=== PATIENT | female | born 1945 | race Caucasian/White ===

== ENCOUNTER → 2017-04-28 | Outpatient (CLI) | payer OTHER, MEDICAID ==
[2017-04-28 14:18] LABS: CRYPTOSPORIDIUM PARVUM ANTIGEN NEGATIVE (NEGATIVE); GIARDIA LAMBLIA ANTIGEN NEGATIVE (NEGATIVE)
== END ==
LOC: LAB 11:19
PROVIDERS: ATTEND Internal Medicine
DX: R19.7 Diarrhea, unspecified (principal)
CPT/HCPCS: 36415; 82270; 87045; 87205; 87328; 87329; 87336; 87427; 87493; 87899

== ENCOUNTER → 2017-06-18 | Outpatient (CLI) | payer OTHER, MEDICAID ==
--- NOTE | 2017-06-18 11:46 | CT ---
STUDY: CT HEAD WITHOUT CONTRAST HISTORY: Headache. Dizziness. Vision changes. COMPARISON: None. TECHNIQUE: Multiple axial images of the head were obtained from the skull base to the vertex without administration of IV contrast. Automated exposure control (AEC) was utilized to adjust the MA and/o r kV. Findings: The sulci, cisterns and ventricles are prominent consistent with mild diffuse volume loss. There are scattered foci of low attenuation in the periventricular and subcortical white matter of both hemispheres. This is a nonspecific finding which likely represents microangiopathic change in a patient of this age. There is no evidence of acute territorial infarction, hemorrhage, mass, mass effect or midline shift . There are no abnormal extra-axial fluid collections. There is no evidence of acute osseous abnorma lity or significant soft tissue swelling. IMPRESSION: 1. No evidence of acute intracranial abnormality. 2. Nonspecific white matter change and mild volume loss as described. 3. If there remains strong clinical concern for acute intracranial abnormality, then an MRI examinat ion should be considered for further evaluation. Reported By:
== END ==
LOC: RAD 10:52
PROVIDERS: ATTEND Internal Medicine
DX: R51 Headache (principal)
CPT/HCPCS: 70450

== ENCOUNTER 2017-07-01 10:05 | Emergency (ER) | payer OTHER, MEDICAID ==
[2017-07-01 10:15] VITALS: BP 143/75; BMI 22.6
--- NOTE | 2017-07-01 11:00 | DR.AMS ---
HPI - Time Seen Time seen: 11:00 - PCP Primary Care Physician: HEMANTH MEJIA - HPI Comment HPI Comment: GETTING WORSE. - Complaint Cheif Complaint Doctors Comments: VISUAL AND AUDITORY HALLUCINATIONS TIMES 3 DAYS. SHE CALL THE POLICE TO HER HOME SAYING SHE SAW SOMEONE AT THE HOME. SHE PULL HER GUN. DR. COLON DID AN OUT PATIENT CT OF THE BRAIN THAT DID NOT REPORT ACUTE FINDINGS. NO FEVER. INTERMITTENT CONFUSION. Chief Complaint:: PTS BOYFRIEND STATES " SHE HAS BEEN SEEING THINGS, AND SHE CALLED THE POLICE THIS AM B/C SHE WAS SAW SOMEONE IN HER HOUSE AND SHE PULLED OUT HER GUN ".. Self Treatment fo Chief Complaint: PTS BOYIEND STATES " IT IS WORSE TODAY ".. - Reviewed Nurses Notes Reviewed: Yes - Source History Provided: Family Member - Mode of Arrival Mode of Arrival: Ambulatory - Timing Onset of Chief Complaint: 06/28/17 Came On: Suddenly Symptoms: Worsening - Duration Duration: Constant Duration: Days - Quality Quality: Change in Behavior, Confusion - Severity Severity: Moderate - Context Recent: None History Of: None - Associated Signs and Symptoms Associated Signs and Symptoms: None PMH - PMH Past Medical History: Yes Past Medical History: Hypertension Past Surgical History: Yes Surgical History: Cholecystectomy - Family History History of Family Medical Conditions: No - Social History Does patient currently use any type of tobacco product: No Have you used tobacco products in the last 12 months: No Type of Tobacco Use: None Does any household member use tobacco: No Alcohol Use: None Do you use any recreational Drugs:: No Lives With: Family Lives Where: Home - infectious screening In the last 2 months have you had wt loss of >10#?: NO Have you had fever, night sweats or hemotysis?: No Have you traveled outside the country in the last 6 months?: No Isolation: Standard ROS - Review of Systems Constitutional: No Symptoms Reported Eyes: No Symptoms Reported ENTM: No Symptoms Reported Respiratoy: No Symptoms Reported Cardiovascular: No Symptoms Reported Gastrointestinal/Abdominal: No Symptoms Reported Genitourinary: No Symptoms Reported Neurological: No Symptoms Reported Musculoskeletal: No Symptoms Reported Integumentary: No Symptoms Reported Hematologic/Lymphatic: No Symptoms Reported Endocrine: No Symptoms Reported Psychiatric: Hallucinations All Other Systems: Reviewed and Negative PE - Vitals Vital Signs: Temp Pulse Resp BP Pulse Ox 07/01/17 10:10 98.5 F 106 H 22 143/75 99 - General Limitations: No Limitations General Appearance: Alert, Other (ACTIVE HALLUCINATIONS WITNESS.) - Head Head Exam: Normal Inspection Head Exam Physical: Other (NONE PRESENT.) - Eyes Eye exam: Normal Appearance, PERRL, EOMI. negative: Conjunctival Injection, Periorbital Swelling, Periorbital Tenderness Pupils: Regular, Round: Bilateral, Reactive: Bilateral - ENT ENT Exam: Normal External Ear Exam TM/Canal Exam: Bilateral Normal Nose Exam: Normal Nose Exam Mouth Exam: Normal Inspection Throat Exam: Normal Inspection - Neck Neck Exam: Trachea Midline - Chest Chest Inspection: Symmetric Chest Wall Rise - Respiratory Respiratory Exam: Normal Lung Sounds Bilat Respiratory Exam: Bilateral Clear to Auscultation - Cardiovascular Cardiovascular Exam: Regular Rate, Normal Rhythm, Normal Heart Sounds - Abdominal Exam Abdominal Exam: Normal Bowel Sounds, Soft. negative: Tenderness - Extremities Extremities Exam: Normal Inspection - Back Back Exam: Normal Inspection - Neurological Neurological Exam: Alert, Oriented X3, CN II-XII Intact, Normal Gait, Reflexes Normal, Other (ACTIVELY HALLUCINATING.). negative: Motor Sensory Deficit Speech: Fluid Speech Cranial Nerve Exam: EOM Function (II, III, IV, ): Normal, Facial Sensation (V) : Normal, Facial Palsy (VII): Normal, Gag reflex (XI): Normal, Tongue Deviation : Normal Motor Strength - LUE: 5/5 Motor Strength - RUE: 5/5 Motor Strength - LLE: 5/5 Motor Strength - RLE: 5/5 Upper Motor Neuron Exam: Babinski Sign: Normal Sensory Exam Upper Extremity: Light Touch: Normal DTR: achilles tendon (L): 4+, achilles tendon (R): 4+, brachioradialis (R): 4+, Patellar (L): 4+, patellar (R): 4+, tricep (L): 4+ - Psychological Psychiatric Exam: Anxious Expanded Psychiatric Exam: Auditory Hallucinations, Visual Hallucinations, Other (DELUSIONS) - Skin Skin Exam: Normal Color MDM - Additional Information Obtained Additional Information Obtained From: Family - Differential Diagnosis Metabolic: Dehydration, Hypercalcemia, Hypernatremia, Hypoglycemia, Hyponatremia Structural: CVA Infectious: UTI Course - Consultation Consultation Comments: DISCUSS PATIENT WITH DR. COLON. HE WANT PATIENT TRASFER TO [facility]. - Education/Counseling Education/Counseling: Patient, Family, Education Educated On: Diagnosis, Needs for Follow Up ROR - Labs Reviewed Laboratory Results Reviewed?: Yes Result Diagrams: 07/01/17 11:13 07/01/17 11:13 Laboratory: WBC 9.4 X10^3/uL (3.6-10.0) 07/01/17 11:13 RBC 4.16 X10^6/uL (3.5-5.4) 07/01/17 11:13 Hgb 13.8 g/dL (12.0-16.0) 07/01/17 11:13 Hct 39.9 % (36.0-47.0) 07/01/17 11:13 MCV 96.0 fL (80.0-100.0) 07/01/17 11:13 MCH 33.2 pg (27.0-34.0) 07/01/17 11:13 MCHC 34.6 g/dL (33.0-35.0) 07/01/17 11:13 RDW 13.5 % (11.6-16.5) 07/01/17 11:13 Plt Count 331 X10^3/uL (150.0-450.0) 07/01/17 11:13 MPV 7.7 fL (7.4-11.0) 07/01/17 11:13 Neut % 82.5 % (42.0-75.0) H 07/01/17 11:13 Lymph % 10.7 % (21.0-51.0) L 07/01/17 11:13 [place] % 6.1 % (0.0-13.0) 07/01/17 11:13 Eos % 0.0 % (0.9-2.9) L 07/01/17 11:13 Baso % 0.7 % (0.2-1.0) 07/01/17 11:13 Neut # 7.7 x10^3/uL (2.2-4.8) H 07/01/17 11:13 Lymph # 1.0 X10^3/uL (1.3-2.9) L 07/01/17 11:13 [place] # 0.6 x10^3/uL (0.3-0.8) 07/01/17 11:13 Eos # 0.0 x10^3/uL (0.0-0.2) 07/01/17 11:13 Baso # 0.1 X10^3/uL (0.0-0.1) 07/01/17 11:13 Absolute Nucleated RBC 0.1 /100WBC 07/01/17 11:13 Sodium 139 mmol/L (136-145) 07/01/17 11:13 Corrected Sodium 140 mmol/L (136-145) 07/01/17 11:13 Potassium 3.8 mmol/L (3.5-5.1) 07/01/17 11:13 Chloride 103 mmol/L (98-107) 07/01/17 11:13 Carbon Dioxide 26.9 mmol/L (21-32) 07/01/17 11:13 BUN 12 mg/dL (7-18) 07/01/17 11:13 Creatinine 1.14 mg/dL (0.55-1.02) H 07/01/17 11:13 Est GFR (MDRD) Af Amer > 60 (>60) 07/01/17 11:13 Est GFR (MDRD) Non-Af 50 (>60) L 07/01/17 11:13 Glucose 134 mg/dL (65-99) H 07/01/17 11:13 Calcium 9.5 mg/dL (8.5-10.1) 07/01/17 11:13 Corrected Calcium TNP 07/01/17 11:13 Total Bilirubin 0.80 mg/dL (0.2-1.0) 07/01/17 11:13 AST 44 Units/L (15-37) H 07/01/17 11:13 ALT 35 Units/L (12-78) 07/01/17 11:13 Alkaline Phosphatase 74 Units/L (46-116) 07/01/17 11:13 Creatine Kinase 154 Units/L (26-192) 07/01/17 11:13 CK-MB (CK-2) 2.4 ng/mL (0-4.0) 07/01/17 11:13 CK/CKMB % Calc 1.6 % (<4) 07/01/17 11:13 Troponin I < 0.02 ng/mL (0-1.5) 07/01/17 11:13 Total Protein 7.7 g/dL (6.4-8.2) 07/01/17 11:13 Albumin 3.8 g/dL (3.4-5.0) 07/01/17 11:13 Globulin 3.9 g/dL (2.5-4.5) 07/01/17 11:13 Albumin/Globulin Ratio 1.0 Ratio (1.1-2.1) L 07/01/17 11:13 Salicylates < 2.8 mg/dL (2.8-20) L 07/01/17 11:13 Acetaminophen 0.0 ug/mL (10-30) L 07/01/17 11:13 Ethyl Alcohol mg/dL < 3 mg/dL (0-19.9) 07/01/17 11:13 Acetone, Semi-Quant Negative (NEGATIVE) 07/01/17 11:13 - XRAY XRAY Interpreted by: Radiologist (REPORT) XRAY Findings: REPORT DISCUSS WITH PATIENT AND FAMILY. - EKG Rhythm: NSR (EKG NOTED) - Diagnosis Discharge Problem: Hallucination, Delusion - Discharge Plan Disposition: 65 XFER TO PSYCH HOSP/UNIT Condition: Stable - Follow ups/Referrals Follow ups/Referrals: Otilio Colon [Primary Care Provider] - 3 days - Instructions
--- NOTE | 2017-07-01 11:19 | RAD ---
HISTORY: Altered mental status Study: Single view of the chest. Comparison: None. Findings: The cardiomediastinal silhouette is normal. No focal consolidations, pleural effusions or pneumothora x. Osseous structures demonstrate no acute abnormality. IMPRESSION: 1. No acute cardiopulmonary process. Reported By:
[2017-07-01 11:26] LABS: BASOPHILS # (AUTO) 0.1 X10^3/uL (0.0-0.1); BASOPHILS % (AUTO) 0.7 % (0.2-1.0); HEMATOCRIT 39.9 % (36.0-47.0); HEMOGLOBIN 13.8 g/dL (12.0-16.0); LYMPHOCYTES % (AUTO) 10.7 % (21.0-51.0); MEAN CORPUSCULAR HEMOGLOBIN 33.2 pg (27.0-34.0); MEAN CORPUSCULAR HGB CONC 34.6 g/dL (33.0-35.0); MEAN PLATELET VOLUME 7.7 fL (7.4-11.0); MONOCYTES # (AUTO) 0.6 x10^3/uL (0.3-0.8); MONOCYTES % (AUTO) 6.1 % (0.0-13.0); NEUTROPHILS # (AUTO) 7.7 x10^3/uL (2.2-4.8); NEUTROPHILS % (AUTO) 82.5 % (42.0-75.0); PLATELET COUNT 331 X10^3/uL (150.0-450.0); RED BLOOD COUNT 4.16 X10^6/uL (3.5-5.4); RED CELL DISTRIBUTION WIDTH 13.5 % (11.6-16.5); WHITE BLOOD COUNT 9.4 X10^3/uL (3.6-10.0)
[2017-07-01 11:37] LABS: SALICYLATE < 2.8 mg/dL (2.8-20)
[2017-07-01 11:45] LABS: BLOOD UREA NITROGEN 12 mg/dL (7-18); CALCIUM 9.5 mg/dL (8.5-10.1); CARBON DIOXIDE 26.9 mmol/L (21-32); CHLORIDE 103 mmol/L (98-107); COR NA(FOR HYPERGLY) 140 mmol/L (136-145); CREATININE 1.14 mg/dL (0.55-1.02); GLUCOSE 134 mg/dL (65-99); SODIUM 139 mmol/L (136-145); TROPONIN I < 0.02 ng/mL (0-1.5); eGFR BLACK RACES > 60 (>60); eGFR NON BLACK RACES 50 (>60)
[2017-07-01 11:49] LABS: ALANINE AMINOTRANSFERASE 35 Units/L (12-78); ALBUMIN 3.8 g/dL (3.4-5.0); ALKALINE PHOSPHATASE 74 Units/L (46-116); ASPARTATE AMINO TRANSFERASE 44 Units/L (15-37); BLOOD ALCOHOL < 3 mg/dL (0-19.9); CKMB % 1.6 % (<4); CREATINE KINASE 154 Units/L (26-192); CREATINE KINASE MB 2.4 ng/mL (0-4.0); TOTAL PROTEIN 7.7 g/dL (6.4-8.2)
--- NOTE | 2017-07-01 16:42 | DR.AMS ---
HPI - PCP Primary Care Physician: HEMANTH MEJIA - Complaint Chief Complaint:: PTS BOYFRIEND STATES " SHE HAS BEEN SEEING THINGS, AND SHE CALLED THE POLICE THIS AM B/C SHE WAS SAW SOMEONE IN HER HOUSE AND SHE PULLED OUT HER GUN ".. Self Treatment fo Chief Complaint: PTS BOYFRIEND STATES " IT IS WORSE TODAY ".. - Reviewed Nurses Notes Reviewed: Yes - Source History Provided: Family Member - Mode of Arrival Mode of Arrival: Ambulatory - Timing Onset of Chief Complaint: 06/28/17 PMH - PMH Past Medical History: Yes Past Medical History: Hypertension Past Surgical History: Yes Surgical History: Cholecystectomy - Family History History of Family Medical Conditions: No - Social History Does patient currently use any type of tobacco product: No Have you used tobacco products in the last 12 months: No Type of Tobacco Use: None Does any household member use tobacco: No Alcohol Use: None Do you use any recreational Drugs:: No Lives With: Family Lives Where: Home - infectious screening In the last 2 months have you had wt loss of >10#?: NO Have you had fever, night sweats or hemotysis?: No Have you traveled outside the country in the last 6 months?: No Isolation: Standard PE - Vitals Vital Signs: Temp Pulse Resp BP Pulse Ox 07/01/17 10:10 98.5 F 106 H 22 143/75 99 ROR - Labs Reviewed Result Diagrams: 07/01/17 11:13 07/01/17 11:13 Laboratory: WBC 9.4 X10^3/uL (3.6-10.0) 07/01/17 11:13 RBC 4.16 X10^6/uL (3.5-5.4) 07/01/17 11:13 Hgb 13.8 g/dL (12.0-16.0) 07/01/17 11:13 Hct 39.9 % (36.0-47.0) 07/01/17 11:13 MCV 96.0 fL (80.0-100.0) 07/01/17 11:13 MCH 33.2 pg (27.0-34.0) 07/01/17 11:13 MCHC 34.6 g/dL (33.0-35.0) 07/01/17 11:13 RDW 13.5 % (11.6-16.5) 07/01/17 11:13 Plt Count 331 X10^3/uL (150.0-450.0) 07/01/17 11:13 MPV 7.7 fL (7.4-11.0) 07/01/17 11:13 Neut % 82.5 % (42.0-75.0) H 07/01/17 11:13 Lymph % 10.7 % (21.0-51.0) L 07/01/17 11:13 [place] % 6.1 % (0.0-13.0) 07/01/17 11:13 Eos % 0.0 % (0.9-2.9) L 07/01/17 11:13 Baso % 0.7 % (0.2-1.0) 07/01/17 11:13 Neut # 7.7 x10^3/uL (2.2-4.8) H 07/01/17 11:13 Lymph # 1.0 X10^3/uL (1.3-2.9) L 07/01/17 11:13 [place] # 0.6 x10^3/uL (0.3-0.8) 07/01/17 11:13 Eos # 0.0 x10^3/uL (0.0-0.2) 07/01/17 11:13 Baso # 0.1 X10^3/uL (0.0-0.1) 07/01/17 11:13 Absolute Nucleated RBC 0.1 /100WBC 07/01/17 11:13 Sodium 139 mmol/L (136-145) 07/01/17 11:13 Corrected Sodium 140 mmol/L (136-145) 07/01/17 11:13 Potassium 3.8 mmol/L (3.5-5.1) 07/01/17 11:13 Chloride 103 mmol/L (98-107) 07/01/17 11:13 Carbon Dioxide 26.9 mmol/L (21-32) 07/01/17 11:13 BUN 12 mg/dL (7-18) 07/01/17 11:13 Creatinine 1.14 mg/dL (0.55-1.02) H 07/01/17 11:13 Est GFR (MDRD) Af Amer > 60 (>60) 07/01/17 11:13 Est GFR (MDRD) Non-Af 50 (>60) L 07/01/17 11:13 Glucose 134 mg/dL (65-99) H 07/01/17 11:13 Calcium 9.5 mg/dL (8.5-10.1) 07/01/17 11:13 Corrected Calcium TNP 07/01/17 11:13 Total Bilirubin 0.80 mg/dL (0.2-1.0) 07/01/17 11:13 AST 44 Units/L (15-37) H 07/01/17 11:13 ALT 35 Units/L (12-78) 07/01/17 11:13 Alkaline Phosphatase 74 Units/L (46-116) 07/01/17 11:13 Creatine Kinase 154 Units/L (26-192) 07/01/17 11:13 CK-MB (CK-2) 2.4 ng/mL (0-4.0) 07/01/17 11:13 CK/CKMB % Calc 1.6 % (<4) 07/01/17 11:13 Troponin I < 0.02 ng/mL (0-1.5) 07/01/17 11:13 Total Protein 7.7 g/dL (6.4-8.2) 07/01/17 11:13 Albumin 3.8 g/dL (3.4-5.0) 07/01/17 11:13 Globulin 3.9 g/dL (2.5-4.5) 07/01/17 11:13 Albumin/Globulin Ratio 1.0 Ratio (1.1-2.1) L 07/01/17 11:13 Salicylates < 2.8 mg/dL (2.8-20) L 07/01/17 11:13 Acetaminophen 0.0 ug/mL (10-30) L 07/01/17 11:13 Ethyl Alcohol mg/dL < 3 mg/dL (0-19.9) 07/01/17 11:13 Acetone, Semi-Quant Negative (NEGATIVE) 07/01/17 11:13 - Diagnosis Discharge Problem: Hallucination, Delusion - Discharge Plan Disposition: 65 XFER TO PSYCH HOSP/UNIT Condition: Stable - Follow ups/Referrals Follow ups/Referrals: Otilio Colon [Primary Care Provider] - 3 days - Instructions
== END 2017-07-01 16:45 ==
LOC: ER 10:20
DX: R44.3 Hallucinations, unspecified (principal); F22 Delusional disorders
CPT/HCPCS: 36415; 71010; 80053; 80307; 80320; 82009; 82550; 82553; 84484; 85025; 93005; 93010; 99284; 99285; G6038; G6039; G6040

== ENCOUNTER → 2017-10-08 | Outpatient (CLI) | payer OTHER, MEDICAID ==
--- NOTE | 2017-10-09 12:35 | CT ---
HISTORY: Abdominal and right flank pain Study: CT of the abdomen and pelvis Comparison: November 28, 2014 Technique: Serial axial images were obtained from the lung bases to the pubic symphysis without infus ion of IV contrast. Dose reduction techniques including automated exposure control (AEC) and adjustme nt of mA and kV were utilized. Findings: Focal pleural thickening and/or scarring are again noted posteriorly within the right lung base. The liver, spleen, pancreas, adrenals, and kidneys are grossly unremarkable in appearance given limitatio ns of this noncontrast exam. No CT evidence of hydronephrosis is identified. Surgical clips are noted within the gallbladder fossa. An oval-shaped density noted within the stomach may reflect non digest ed medication and/or foodstuffs. Stool and gas are seen throughout the colon to the level of the rect um. The appendix is not definitely visualized. The urinary bladder is not well distended but otherwis e grossly unremarkable. By history the uterus is been surgically removed. A small hiatal hernia is no desean. IMPRESSION: No CT evidence of obstructive uropathy is appreciated. Cholecystectomy. Other findings as noted above. Reported By:
== END ==
LOC: RAD 10:22
PROVIDERS: ATTEND Internal Medicine
DX: R10.84 Generalized abdominal pain (principal)
CPT/HCPCS: 74176

== ENCOUNTER 2017-11-05 14:32 | Emergency (ER) | payer OTHER, MEDICAID ==
[2017-11-05 14:37] VITALS: BP 172/74; BMI 23.2
--- NOTE | 2017-11-05 14:50 | DR.GENAD ---
HPI - PCP Primary Care Physician: HEMANTH - Complaint/Symptoms Chief Complaint Doctors Comments: Patient states that she has had weakness, muscle pain and cough for three days. Chief Complaint:: PT C/O GENERALIZED WEAKNESS, DIZZINESS, COUGHING, N/V, AND FEVER. PT STATES SHE HAS NOT BEEN FEELING VERY WELL THE PAST FEW DAYS. - Source History Provided: Patient - Timing Onset of Chief Complaint: 11/03/17 PMH - PMH Past Medical History: Yes Past Medical History: Anxiety, Depression, GERD, Hypertension Past Surgical History: Yes Surgical History: Cholecystectomy - Family History History of Family Medical Conditions: No - Social History Does any household member use tobacco: No Alcohol Use: None Do you use any recreational Drugs:: No Lives With: Family Lives Where: Home - infectious screening In the last 2 months have you had wt loss of >10#?: NO Have you had fever, night sweats or hemotysis?: No Have you traveled outside the country in the last 6 months?: No Isolation: Standard ROS - Review of Systems Eyes: No Symptoms Reported ENTM: No Symptoms Reported Respiratoy: No Symptoms Reported Cardiovascular: No Symptoms Reported Gastrointestinal/Abdominal: No Symptoms Reported Genitourinary: No Symptoms Reported Neurological: No Symptoms Reported Musculoskeletal: No Symptoms Reported Integumentary: No Symptoms Reported Hematologic/Lymphatic: No Symptoms Reported Endocrine: No Symptoms Reported Psychiatric: No Symptoms Reported All Other Systems: Reviewed and Negative PE - Vital Signs Vitals: Temperature 97.6 F Pulse Rate 93 Respiratory Rate 20 Blood Pressure 172/74 O2 Sat by Pulse Oximetry 96 - General Limitations: No Limitations General Appearance: Alert, In No Apparent Distress - Head Head Exam: Normal Inspection, Atraumatic - Eyes Eye exam: Normal Appearance, PERRL, EOMI - ENT ENT Exam: Normal Exam External Ear Exam: Normal External Inspection TM/Canal Exam: Bilateral Normal Nose Exam: Normal Nose Exam Mouth Exam: Normal Inspection Throat Exam: Normal Inspection - Neck Neck Exam: Normal Inspection, Full ROM - Chest Chest Inspection: Normal Inspection, Symmetric Chest Wall Rise - Respiratory Respiratory Exam: Normal Lung Sounds Bilat Respiratory Exam: Bilateral Clear to Auscultation - Cardiovascular Cardiovascular Exam: Regular Rate, Normal Rhythm - Abdominal Exam Abdominal Exam: Normal Inspection Abdominal Tenderness: negative: RUQ, RLQ, LUQ, LLQ, Epigastrium, Suprapubic, Diffuse, Mild, Moderate, Severe, Other - Extremities Extremities Exam: Normal Inspection, Full ROM - Back Back Exam: Normal Inspection, Full ROM - Neurologic Neurological Exam: Alert, Oriented X3, CN II-XII Intact - Psychiatric Psychiatric Exam: Normal Affect, Normal Mood - Skin Skin Exam: Warm, Dry, Intact Course - Treatment Treatment: KCL 50meq, NS - Reevaluation 1st: Improved ROR - Labs Reviewed Laboratory Results Reviewed?: Yes (Influenza A positive; low potassium) Result Diagrams: 11/05/17 14:57 11/05/17 14:57 Laboratory: WBC 5.4 X10^3/uL (3.6-10.0) 11/05/17 14:57 RBC 3.84 X10^6/uL (3.5-5.4) 11/05/17 14:57 Hgb 12.5 g/dL (12.0-16.0) 11/05/17 14:57 Hct 35.9 % (36.0-47.0) L 11/05/17 14:57 MCV 93.4 fL (80.0-100.0) 11/05/17 14:57 MCH 32.4 pg (27.0-34.0) 11/05/17 14:57 MCHC 34.7 g/dL (33.0-35.0) 11/05/17 14:57 RDW 13.1 % (11.6-16.5) 11/05/17 14:57 Plt Count 166 X10^3/uL (150.0-450.0) 11/05/17 14:57 MPV 7.6 fL (7.4-11.0) 11/05/17 14:57 Neut % 77.1 % (42.0-75.0) H 11/05/17 14:57 Lymph % 10.0 % (21.0-51.0) L 11/05/17 14:57 [place] % 12.5 % (0.0-13.0) 11/05/17 14:57 Eos % 0.1 % (0.9-2.9) L 11/05/17 14:57 Baso % 0.3 % (0.2-1.0) 11/05/17 14:57 Neut # 4.1 x10^3/uL (2.2-4.8) 11/05/17 14:57 Lymph # 0.5 X10^3/uL (1.3-2.9) L 11/05/17 14:57 [place] # 0.7 x10^3/uL (0.3-0.8) 11/05/17 14:57 Eos # 0.0 x10^3/uL (0.0-0.2) 11/05/17 14:57 Baso # 0.0 X10^3/uL (0.0-0.1) 11/05/17 14:57 Absolute Nucleated RBC 0.0 /100WBC 11/05/17 14:57 Sodium 136 mmol/L (136-145) 11/05/17 14:57 Corrected Sodium TNP 11/05/17 14:57 Potassium 2.9 mmol/L (3.5-5.1) L* 11/05/17 14:57 Chloride 100 mmol/L (98-107) 11/05/17 14:57 Carbon Dioxide 25.8 mmol/L (21-32) 11/05/17 14:57 BUN 13 mg/dL (7-18) 11/05/17 14:57 Creatinine 1.07 mg/dL (0.55-1.02) H 11/05/17 14:57 Est GFR (MDRD) Af Amer > 60 (>60) 11/05/17 14:57 Est GFR (MDRD) Non-Af 54 (>60) L 11/05/17 14:57 Glucose 92 mg/dL (65-99) 11/05/17 14:57 Calcium 8.8 mg/dL (8.5-10.1) 11/05/17 14:57 Corrected Calcium 9.4 mg/dL (8.5-10.1) 11/05/17 14:57 Total Bilirubin 0.80 mg/dL (0.2-1.0) 11/05/17 14:57 AST 38 Units/L (15-37) H 11/05/17 14:57 ALT 34 Units/L (12-78) 11/05/17 14:57 Alkaline Phosphatase 65 Units/L (46-116) 11/05/17 14:57 Total Protein 6.8 g/dL (6.4-8.2) 11/05/17 14:57 Albumin 3.3 g/dL (3.4-5.0) L 11/05/17 14:57 Globulin 3.5 g/dL (2.5-4.5) 11/05/17 14:57 Albumin/Globulin Ratio 0.9 Ratio (1.1-2.1) L 11/05/17 14:57 Influenza Type A (PCR) Positive (NEGATIVE) A 11/05/17 14:59 Influenza Type B (PCR) Negative (NEGATIVE) 11/05/17 14:59 - XRAY XRAY Interpreted by: Radiologist (Chest: negative) - Diagnosis Discharge Problem: Influenza A, Hypokalemia - Discharge Plan Condition: Stable - Follow ups/Referrals Follow ups/Referrals: Otilio Colon [Primary Care Provider] - 3 days - Instructions
[2017-11-05] MEDS ORDERED: TORADOL 30 MG VIAL IVP ONE (14:51)
[2017-11-05] MEDS ORDERED: NS 1000 ML 1,000 ML IV ONE (14:51)
[2017-11-05] MEDS ORDERED: NS 1000 ML 1,000 ML ONE (14:59)
[2017-11-05] MEDS ORDERED: TORADOL 30 MG VIAL ONE (14:59)
[2017-11-05 15:13] LABS: BLOOD UREA NITROGEN 13 mg/dL (7-18); CALCIUM 8.8 mg/dL (8.5-10.1); CARBON DIOXIDE 25.8 mmol/L (21-32); CHLORIDE 100 mmol/L (98-107); CREATININE 1.07 mg/dL (0.55-1.02); SODIUM 136 mmol/L (136-145); eGFR BLACK RACES > 60 (>60); eGFR NON BLACK RACES 54 (>60)
[2017-11-05 15:16] LABS: BASOPHILS % (AUTO) 0.3 % (0.2-1.0); EOSINOPHILS % (AUTO) 0.1 % (0.9-2.9); HEMATOCRIT 35.9 % (36.0-47.0); HEMOGLOBIN 12.5 g/dL (12.0-16.0); LYMPHOCYTES # (AUTO) 0.5 X10^3/uL (1.3-2.9); MEAN CORPUSCULAR HEMOGLOBIN 32.4 pg (27.0-34.0); MEAN CORPUSCULAR HGB CONC 34.7 g/dL (33.0-35.0); MEAN CORPUSCULAR VOLUME 93.4 fL (80.0-100.0); MEAN PLATELET VOLUME 7.6 fL (7.4-11.0); MONOCYTES # (AUTO) 0.7 x10^3/uL (0.3-0.8); MONOCYTES % (AUTO) 12.5 % (0.0-13.0); NEUTROPHILS # (AUTO) 4.1 x10^3/uL (2.2-4.8); NEUTROPHILS % (AUTO) 77.1 % (42.0-75.0); PLATELET COUNT 166 X10^3/uL (150.0-450.0); RED BLOOD COUNT 3.84 X10^6/uL (3.5-5.4); RED CELL DISTRIBUTION WIDTH 13.1 % (11.6-16.5); WHITE BLOOD COUNT 5.4 X10^3/uL (3.6-10.0)
[2017-11-05 15:18] LABS: ALANINE AMINOTRANSFERASE 34 Units/L (12-78); ALBUMIN 3.3 g/dL (3.4-5.0); ALKALINE PHOSPHATASE 65 Units/L (46-116); ASPARTATE AMINO TRANSFERASE 38 Units/L (15-37); COR CA(FOR HYPOALB) 9.4 mg/dL (8.5-10.1); TOTAL PROTEIN 6.8 g/dL (6.4-8.2)
--- NOTE | 2017-11-05 15:26 | RAD ---
Chest, one view Indication: Generalized weakness, dizziness, coughing, nausea, vomiting, fever Comparison: 07/01/2017 Findings: The heart size is normal. No focal consolidation, significant effusion or pneumothorax is i dentified. Remote left-sided rib fractures are noted. No acute osseous abnormality is identified. Impression: No acute cardiopulmonary abnormality. Reported By:
[2017-11-05] MEDS ORDERED: K-LYTE EFFERVESCENT PO STA (15:46)
[2017-11-05] MEDS ORDERED: K-LYTE EFFERVESCENT ONE (15:48)
[2017-11-05] MEDS ORDERED: ZOFRAN INJ 4 MG VIAL ONE (16:09)
[2017-11-05] MEDS ORDERED: ZOFRAN INJ 4 MG VIAL IVP ONE (16:11)
[2017-11-05 16:49] LABS: BILIRUBIN,URINE NEGATIVE (NEGATIVE); BLOOD/HEMOGLOBIN,URINE NEGATIVE (NEGATIVE); GLUCOSE, URINE NEGATIVE (NEGATIVE); KETONES,URINE NEGATIVE (NEGATIVE); LEUKOCYTE ESTERASE ,URINE 1+ (NEGATIVE); NITRITES,URINE NEGATIVE (NEGATIVE); PH,URINE 6.5 (5.0 - 8.0); PROTEIN,URINE NEGATIVE (NEGATIVE); UROBILINOGEN,URINE NORMAL (NORMAL)
[2017-11-05 16:55] LABS: APPEARANCE,URINE CLEAR (CLEAR); COLOR,URINE PALE YELLOW (YELLOW); RBC,URINE 0-1 /HPF (NEGATIVE)
[2017-11-05 16:56] LABS: BACTERIA,URINE 3+ /HPF (NEGATIVE); SQUAMOUS EPITHELIAL CELL,UR RARE /HPF (NEGATIVE)
== END 2017-11-05 16:49 | disposition home or self-care (01) ==
LOC: ER 14:34
DX: J11.1 Influenza due to unidentified influenza virus with other respiratory manifestations (principal); E87.6 Hypokalemia
CPT/HCPCS: 36415; 71045; 80053; 81001; 85025; 87502; 96365; 96367; 96374; 96375; 99283; A4222; J1885; J2405

== ENCOUNTER 2018-06-21 12:03 | Observation (INO) ==
--- NOTE | 2018-06-21 12:25 | DR.AMS ---
HPI Time Seen Time Seen by Provider: 06/21/18 12:31 PCP Primary Care Physician: HEMANTH HPI Comment HPI Comment: PATIENTS RELATIVE CALL EMS BECAUSE SHE FELL. PATIENTS HOUSE FORSE OPEN, SHE WAS IN RECLINRE CONFUSE. SHE IS SAID TO HAVE BEING FALLING FREQUENTLY. IN ED, ANSWERING QUESTIONS, SLOW IN HER ANSWERS AND CONFUSE. NO FEVER NOTED AND LEFT LEG APPEAR SLIGHTLY WEAK. NO HIP. Complaint Cheif Complaint Doctors Comments: AMS. Chief Complaint:: EMS WAS CALLED TO PATIENT HOME AND FAMILY STATED THAT PT HAD FALLEN AND THEY COULD NOT GET IN THE DOOR. PT WAS SITING IN THE RECLINER WHEN EMS FORCED THEIR WAY INTO THE HOUSE AND WAS AMS AND COULD NOT TELL YOU ANY INFORMATION. PATIENT FAMILY STATED THAT FAMILY SAID THAT PATIENT HAD BEEN FALLING ALOT LATELY. Reviewed Nurses Notes Reviewed: Yes Source History Provided: Patient and EMS Mode of Arrival Mode of Arrival: EMS Timing Onset of Chief Complaint: 06/21/18 Came On: Suddenly Symptoms: Improving Symptom Onset: Unknown Duration Duration: Constant Duration: Hours Quality Quality: Change in Behavior and Confusion Severity Severity: Moderate Context Recent: None History Of: None Associated Signs and Symptoms Associated Signs and Symptoms: Generalized Weakness, Change in Behavior, Confusion and Decreased LOC PMH PMH Past Medical History: Yes Past Medical History: Anxiety, Depression, GERD and Hypertension Past Surgical History: Yes Surgical History: Cholecystectomy Family History History of Family Medical Conditions: No Social History Does patient currently use any type of tobacco product: No Have you used tobacco products in the last 12 months: No Type of Tobacco Use: None Does any household member use tobacco: No Alcohol Use: None Do you use any recreational Drugs:: No Lives With: Alone Lives Where: Home infectious screening In the last 2 months have you had wt loss of >10#?: NO Have you had fever, night sweats or hemotysis?: No Have you traveled outside the country in the last 6 months?: No Isolation: Standard ROS Review of Systems Constitutional: Weakness and Fatigue; negative Chills and Fever Eyes: negative Eye Pain and Discharge ENTM: No Symptoms Reported Respiratoy: Short of Breath Cardiovascular: No Symptoms Reported Gastrointestinal/Abdominal: No Symptoms Reported; negative Diarrhea and Vomiting Genitourinary: No Symptoms Reported Neurological: Weakness Musculoskeletal: Back Pain Integumentary: No Symptoms Reported Hematologic/Lymphatic: No Symptoms Reported Endocrine: No Symptoms Reported Psychiatric: Hallucinations All Other Systems: Reviewed and Negative PE Vitals Vital Signs: Temp Pulse Pulse Resp BP BP Pulse Ox 06/21/18 17:00 156/73 06/21/18 16:31 180/77 06/21/18 16:15 160/75 06/21/18 15:00 141/63 06/21/18 14:00 78 18 143/67 93 L 06/21/18 13:46 76 140/66 06/21/18 13:35 80 18 156/79 95 06/21/18 12:30 130/60 06/21/18 12:03 97.1 F L 87 20 131/68 93 L 11/05/17 14:33 172/74 General Limitations: Altered Mental Status General Appearance: In No Apparent Distress and Other (SLEEPY BUT AROUSABLE.) Head Head Exam: Normal Inspection Head Exam Physical: Other (NONE PRESENT.) Eyes Eye exam: PERRL and EOMI; negative Scleral Icterus and Conjunctival Injection Pupils: Regular, Round: Bilateral and Reactive: Bilateral ENT ENT Exam: Normal Exam External Ear Exam: Normal External Inspection TM/Canal Exam: Bilateral: Normal Nose Exam: Normal Nose Exam Mouth Exam: Normal Inspection Throat Exam: Normal Inspection Neck Neck Exam: Normal Inspection Chest Chest Inspection: Normal Inspection and Symmetric Chest Wall Rise Respiratory Respiratory Exam: Normal Lung Sounds Bilat Respiratory Exam: Bilateral: Rhonchi and Lower: Rhonchi Cardiovascular Cardiovascular Exam: Regular Rate, Normal Rhythm and Normal Heart Sounds Abdominal Exam Abdominal Exam: Normal Inspection, Normal Bowel Sounds and Soft; negative Tenderness Extremities Extremities Exam: Normal Inspection Back Back Exam: Normal Inspection Neurological Neurological Exam: Alert and Other (RIGHT LEG SLIGHTLY WEAK.); negative Motor Sensory Deficit Cranial Nerve Exam: Facial Sensation (V): Normal, Facial Palsy (VII): Normal, Gag reflex (XI): Normal and Tongue Deviation: Normal Motor Strength - LUE: 5/5 Motor Strength - RUE: 5/5 Motor Strength - LLE: 5/5 Motor Strength - RLE: 4/5 Upper Motor Neuron Exam: Babinski Sign: Normal Psychological Psychiatric Exam: Other (SLEEPY BUT AROUSABLE.) Skin Skin Exam: Dry MDM Additional Information Obtained Additional Information Obtained From: Family Differential Diagnosis Metabolic: Dehydration, Hypercalcemia, Hypernatremia, Hypoglycemia and Hyponatremia Structural: Closed Head Injury, CVA and Mass Lesion Infectious: Sepsis and UTI COURSE Treatment Treatment: SEEORDERS. Consultation Consultation Comments: DISCUSS PATIENT WITH DR. SAXENA. HE WILL ADMIT PATIENT. Education/Counseling Education/Counseling: Patient, Family and Education Educated On: Diagnosis ROR Labs Reviewed Laboratory Results Reviewed?: Yes Result Diagrams: 06/21/18 12:59 06/21/18 12:59 Laboratory: WBC 5.7 X10^3/uL (3.6-10.0) 06/21/18 12:59 RBC 3.87 X10^6/uL (3.5-5.4) 06/21/18 12:59 Hgb 12.7 g/dL (12.0-16.0) 06/21/18 12:59 Hct 36.2 % (36.0-47.0) 06/21/18 12:59 MCV 93.5 fL (80.0-100.0) 06/21/18 12:59 MCH 32.7 pg (27.0-34.0) 06/21/18 12:59 MCHC 35.0 g/dL (33.0-35.0) 06/21/18 12:59 RDW 12.8 % (11.6-16.5) 06/21/18 12:59 Plt Count 217 X10^3/uL (150.0-450.0) 06/21/18 12:59 MPV 7.4 fL (7.4-11.0) 06/21/18 12:59 Neut % (Auto) 76.2 % (42.0-75.0) H 06/21/18 12:59 Lymph % (Auto) 18.0 % (21.0-51.0) L 06/21/18 12:59 [place] % (Auto) 4.8 % (0.0-13.0) 06/21/18 12:59 Eos % (Auto) 0.5 % (0.9-2.9) L 06/21/18 12:59 Baso % (Auto) 0.5 % (0.2-1.0) 06/21/18 12:59 Neut # (Auto) 4.3 x10^3/uL (2.2-4.8) 06/21/18 12:59 Lymph # (Auto) 1.0 X10^3/uL (1.3-2.9) L 06/21/18 12:59 [place] # (Auto) 0.3 x10^3/uL (0.3-0.8) 06/21/18 12:59 Eos # (Auto) 0.0 x10^3/uL (0.0-0.2) 06/21/18 12:59 Baso # (Auto) 0.0 X10^3/uL (0.0-0.1) 06/21/18 12:59 Absolute Nucleated RBC 0.1 /100WBC 06/21/18 12:59 Sodium 141 mmol/L (136-145) 06/21/18 12:59 Corrected Sodium 141 mmol/L (136-145) 06/21/18 12:59 Potassium 3.4 mmol/L (3.5-5.1) L 06/21/18 12:59 Chloride 104 mmol/L (98-107) 06/21/18 12:59 Carbon Dioxide 32.4 mmol/L (21-32) H 06/21/18 12:59 BUN 7 mg/dL (7-18) 06/21/18 12:59 Creatinine 0.92 mg/dL (0.55-1.02) 06/21/18 12:59 Est GFR (MDRD) Af Amer > 60 (>60) 06/21/18 12:59 Est GFR (MDRD) Non-Af > 60 (>60) 06/21/18 12:59 Glucose 113 mg/dL (65-99) H 06/21/18 12:59 Calcium 9.0 mg/dL (8.5-10.1) 06/21/18 12:59 Corrected Calcium 9.6 mg/dL (8.5-10.1) 06/21/18 12:59 Total Bilirubin 0.70 mg/dL (0.2-1.0) 06/21/18 12:59 AST 35 Units/L (15-37) 06/21/18 12:59 ALT 32 Units/L (12-78) 06/21/18 12:59 Alkaline Phosphatase 68 Units/L (46-116) 06/21/18 12:59 Creatine Kinase 85 Units/L (26-192) 06/21/18 12:59 CK-MB (CK-2) 1.7 ng/mL (0-4.0) 06/21/18 12:59 CK/CKMB % Calc 2.0 % (<4) 06/21/18 12:59 Troponin I < 0.02 ng/mL (0-1.5) 06/21/18 12:59 Total Protein 6.9 g/dL (6.4-8.2) 06/21/18 12:59 Albumin 3.3 g/dL (3.4-5.0) L 06/21/18 12:59 Globulin 3.6 g/dL (2.5-4.5) 06/21/18 12:59 Albumin/Globulin Ratio 0.9 Ratio (1.1-2.1) L 06/21/18 12:59 Specimen Type Catherized urine 06/21/18 13:32 Urine Color Yellow (YELLOW) 06/21/18 13:32 Urine Appearance Cloudy (CLEAR) 06/21/18 13:32 Urine pH 6.0 (5.0 - 8.0) 06/21/18 13:32 Ur Specific [place] 1.015 (1.000-1.030) 06/21/18 13:32 Urine Protein 2+ (NEGATIVE) 06/21/18 13:32 Urine Glucose (UA) Negative (NEGATIVE) 06/21/18 13:32 Urine Ketones Negative (NEGATIVE) 06/21/18 13:32 Urine Occult Blood 1+ (NEGATIVE) 06/21/18 13:32 Urine Nitrite Negative (NEGATIVE) 06/21/18 13:32 Urine Bilirubin Negative (NEGATIVE) 06/21/18 13:32 Urine Urobilinogen 3+ (NORMAL) 06/21/18 13:32 Ur Leukocyte Esterase 1+ (NEGATIVE) 06/21/18 13:32 Urine RBC 3-5 /HPF (NONE SEEN) 06/21/18 13:32 Urine WBC 10-20 /HPF (NONE SEEN) 06/21/18 13:32 Ur Squamous Epith Cells Rare /HPF (NEGATIVE) 06/21/18 13:32 Urine Bacteria 3+ /HPF (NEGATIVE) 06/21/18 13:32 Ur Culture Indicated? Yes/culture set up 06/21/18 13:32 Urine Opiates Screen Positive (NEG=<300) A 06/21/18 13:32 Urine Methadone Screen Negative (NEG=<300) 06/21/18 13:32 Ur Barbiturates Screen Negative (NEG=<200) 06/21/18 13:32 Ur Phencyclidine Scrn Negative (NEG=<25) 06/21/18 13:32 Ur Amphetamines Screen Negative (NEG=<1000) 06/21/18 13:32 U Benzodiazepines Scrn Positive (NEG=<200) A 06/21/18 13:32 Urine Cocaine Screen Negative (NEG=<300) 06/21/18 13:32 U Marijuana (THC) Screen Negative (NEG=<50) 06/21/18 13:32 XRAY XRAY Interpreted by: Radiologist XRAY Findings: REPORT DISCUSS WITH PATIENT. EKG Rate: 72 [place]: Normal Rhythm: NSR Block: None Hypertrophy: LVH ST: Normal Diagnosis Discharge Problem: Altered mental status, Hallucination
--- NOTE | 2018-06-21 13:06 | CT ---
CT HEAD WITHOUT CONTRAST CLINICAL HISTORY: 73-year-old female with altered mental status and repeated falls. COMPARISON: CT head 06/18/2017. TECHNIQUE: Multiple, non-contrasted axial CT images were obtained from the skull base to the cranial vertex. Coronal and sagittal reformats were performed. FINDINGS: There are no abnormal intra- or extra-axial fluid collections, midline shift, or mass effec t. Roth-white differentiation is normal. Global cortical involutional changes are present that are si gnificantly advanced for the patient's stated age. The ventricular system is enlarged but commensurat e with the degree of sulcal prominence. Chronic lacunar infarctions bilateral thalami. Periventricula r and supraventricular white matter hypodensity is present that is nonspecific in appearance, but mos t likely to represent microvascular ischemic changes. Atherosclerotic vascular calcification is prese nt within the carotid siphons. The imaged paranasal sinuses, mastoid air cells, and tympanic spaces are clear. IMPRESSION: 1. No definite evidence of an acute intracranial process. If clinical concern persists for acute stro ke and it would alter patient management, consider MRI/MRA brain 2. Moderate microvascular white matter ischemic changes, with associated volume loss. Reported By:
[2018-06-21 13:09] LABS: BASOPHILS % (AUTO) 0.5 % (0.2-1.0); EOSINOPHILS % (AUTO) 0.5 % (0.9-2.9); HEMATOCRIT 36.2 % (36.0-47.0); HEMOGLOBIN 12.7 g/dL (12.0-16.0); MEAN CORPUSCULAR HEMOGLOBIN 32.7 pg (27.0-34.0); MEAN CORPUSCULAR VOLUME 93.5 fL (80.0-100.0); MEAN PLATELET VOLUME 7.4 fL (7.4-11.0); MONOCYTES # (AUTO) 0.3 x10^3/uL (0.3-0.8); MONOCYTES % (AUTO) 4.8 % (0.0-13.0); NEUTROPHILS # (AUTO) 4.3 x10^3/uL (2.2-4.8); NEUTROPHILS % (AUTO) 76.2 % (42.0-75.0); PLATELET COUNT 217 X10^3/uL (150.0-450.0); RED BLOOD COUNT 3.87 X10^6/uL (3.5-5.4); RED CELL DISTRIBUTION WIDTH 12.8 % (11.6-16.5); WHITE BLOOD COUNT 5.7 X10^3/uL (3.6-10.0)
--- NOTE | 2018-06-21 13:12 | RAD ---
HISTORY: Altered mental status Study: Single-view of the chest Comparison: November 05, 2017 Findings: The trachea is midline. The cardiac silhouette is unremarkable. The lungs are clear without focal i nfiltrate or effusion. IMPRESSION: 1. No acute cardiopulmonary disease. Reported By:
[2018-06-21 13:36] LABS: BLOOD UREA NITROGEN 7 mg/dL (7-18); CARBON DIOXIDE 32.4 mmol/L (21-32); CHLORIDE 104 mmol/L (98-107); COR NA(FOR HYPERGLY) 141 mmol/L (136-145); CREATININE 0.92 mg/dL (0.55-1.02); SODIUM 141 mmol/L (136-145); TROPONIN I < 0.02 ng/mL (0-1.5); eGFR NON BLACK RACES > 60 (>60)
[2018-06-21 13:42] LABS: ALANINE AMINOTRANSFERASE 32 Units/L (12-78); ALBUMIN 3.3 g/dL (3.4-5.0); ALKALINE PHOSPHATASE 68 Units/L (46-116); ASPARTATE AMINO TRANSFERASE 35 Units/L (15-37); COR CA(FOR HYPOALB) 9.6 mg/dL (8.5-10.1); CREATINE KINASE 85 Units/L (26-192); CREATINE KINASE MB 1.7 ng/mL (0-4.0); TOTAL PROTEIN 6.9 g/dL (6.4-8.2)
[2018-06-21 13:50] LABS: BILIRUBIN,URINE NEGATIVE (NEGATIVE); BLOOD/HEMOGLOBIN,URINE 1+ (NEGATIVE); GLUCOSE, URINE NEGATIVE (NEGATIVE); KETONES,URINE NEGATIVE (NEGATIVE); LEUKOCYTE ESTERASE ,URINE 1+ (NEGATIVE); NITRITES,URINE NEGATIVE (NEGATIVE); PROTEIN,URINE 2+ (NEGATIVE); UROBILINOGEN,URINE 3+ (NORMAL)
[2018-06-21 14:03] LABS: APPEARANCE,URINE CLOUDY (CLEAR); BACTERIA,URINE 3+ /HPF (NEGATIVE); COLOR,URINE YELLOW (YELLOW); SQUAMOUS EPITHELIAL CELL,UR RARE /HPF (NEGATIVE)
[2018-06-21] MEDS: NS 1000 ML 1,000 ML IV SCH (19:09)
[2018-06-21 20:24] LABS: CKMB % 1.7 % (<4); CREATINE KINASE 76 Units/L (26-192); CREATINE KINASE MB 1.3 ng/mL (0-4.0); TROPONIN I < 0.02 ng/mL (0-1.5)
[2018-06-21] MEDS ORDERED: NS 100 ML IV + SPIKE MINIBAG* 100 ML IV ONE (21:26)
[2018-06-21] MEDS ORDERED: ROCEPHIN VIAL 1 GRAM ONE (21:26)
[2018-06-21] MEDS: ROCEPHIN VIAL 1 GRAM 1 G in NS 100 ML IV + SPIKE MINIBAG* 100 ML IV SCH (21:32)
[2018-06-22 01:51] LABS: CKMB % 1.5 % (<4); CREATINE KINASE 81 Units/L (26-192); CREATINE KINASE MB 1.2 ng/mL (0-4.0); TROPONIN I < 0.02 ng/mL (0-1.5)
[2018-06-22 06:28] LABS: BASOPHILS % (AUTO) 0.9 % (0.2-1.0); HEMATOCRIT 32.8 % (36.0-47.0); HEMOGLOBIN 11.6 g/dL (12.0-16.0); LYMPHOCYTES # (AUTO) 1.2 X10^3/uL (1.3-2.9); LYMPHOCYTES % (AUTO) 23.5 % (21.0-51.0); MEAN CORPUSCULAR HEMOGLOBIN 32.8 pg (27.0-34.0); MEAN CORPUSCULAR HGB CONC 35.3 g/dL (33.0-35.0); MEAN CORPUSCULAR VOLUME 92.7 fL (80.0-100.0); MEAN PLATELET VOLUME 7.9 fL (7.4-11.0); MONOCYTES # (AUTO) 0.3 x10^3/uL (0.3-0.8); MONOCYTES % (AUTO) 5.3 % (0.0-13.0); NEUTROPHILS # (AUTO) 3.4 x10^3/uL (2.2-4.8); NEUTROPHILS % (AUTO) 69.3 % (42.0-75.0); PLATELET COUNT 205 X10^3/uL (150.0-450.0); RED BLOOD COUNT 3.54 X10^6/uL (3.5-5.4); RED CELL DISTRIBUTION WIDTH 12.8 % (11.6-16.5); WHITE BLOOD COUNT 4.9 X10^3/uL (3.6-10.0)
[2018-06-22 06:44] LABS: ALANINE AMINOTRANSFERASE 25 Units/L (12-78); ALBUMIN 2.9 g/dL (3.4-5.0); ALKALINE PHOSPHATASE 57 Units/L (46-116); ASPARTATE AMINO TRANSFERASE 29 Units/L (15-37); BLOOD UREA NITROGEN 5 mg/dL (7-18); CALCIUM 8.2 mg/dL (8.5-10.1); CARBON DIOXIDE 31.5 mmol/L (21-32); CHLORIDE 105 mmol/L (98-107); CHOL/HDL RATIO 3.1 (0.0-5.0); CHOLESTEROL 85 mg/dL (0-200); COR CA(FOR HYPOALB) 9.1 mg/dL (8.5-10.1); CREATININE 0.75 mg/dL (0.55-1.02); HDL CHOLESTEROL 27 mg/dL (40-60); SODIUM 143 mmol/L (136-145); TOTAL PROTEIN 6.3 g/dL (6.4-8.2); TRIGLYCERIDES 105 mg/dL (0-150); eGFR NON BLACK RACES > 60 (>60)
[2018-06-22] MEDS ORDERED: K-RIDER 10 MEQ/NS 100 ML 10 MEQ/100 ML BAG IV PRN (06:57)
[2018-06-22] MEDS ORDERED: POTASSIUM CHLORIDE LIQ 20 MEQ UDC PO PRN (06:57)
[2018-06-22] MEDS ORDERED: POTASSIUM CHL 60 MEQ/NS 0.45% 500 ML IV PRN (06:57)
[2018-06-22] MEDS ORDERED: POTASSIUM CHL 40 MEQ/NS 0.45% 500 ML IV PRN (06:57)
[2018-06-22] MEDS ORDERED: K-LYTE EFFERVESCENT PO PRN (06:57)
--- NOTE | 2018-06-22 08:14 | DR.H&P ---
H&P - History & Physical for Day of: H&P Date: 06/21/18 - Chief Complaint Chief Complaint: AMS, WEAKNESS - History of Present Illness History of Present Illness: IS A 73 YEAR OLD PATIENT OF OURS WHO PRESENTED TO THE EMERGENCY ROOM VIA WITH COMPLAINTS OF FALLING AT HOME. ON EMS ARRIVAL TO SCENE, PATIENT WAS SITTING IN THE RECLINER. SHE WAS NOTED WITH ALTERED MENTAL STATUS AND CONFUSION. FAMILY REPORTS THAT SHE HAS FALLEN OFTEN OVER THE PAST SEVERAL WEEKS. ON ARRIVAL TO THE ER, SHE WAS SLOW TO ANSWER QUESTIONS AND WAS CONFUSED. SHE WAS NOTED WITH GENERALIZED WEAKNESS. ON ARRIVAL , VITALS WERE 97.1-87-20-93%NC-131/68. LABS WERE OBTAINED. ABNORMAL LAB VALUES INCLUDE THE FOLLOWING: POTASSIUM 3.4, CARBON DIOXIDE 32.4, GLUCOSE 113, ALBUMIN 3.3. CARDIAC ENZYMES WITHIN NORMAL LIMITS. TOXICOLOGY IS POSITIVE FOR OPIATES AND BENZODIAZEPINES. URINALYSIS REVEALS: WBC 10-20, RBC 3-5, BACTERIA 3+ , LEUKOCYTES 1+, OCCULT BLOOD 1+, PROTEIN 2+. BRAIN CT OBTAINED AND REVEALED: No definite evidence of an acute intracranial process. If clinical concern persists for acute stroke and it would alter patient management, consider MRI/ MRA brain. Moderate microvascular white matter ischemic changes, with associated volume loss. CHEST XRAY REVEALED: NO ACUTE CARDIOPULMONARY DISEASE. PATIENT WAS ADMITTED TO THE [facility] FOR FURTHER EVALUATION AND TREATMENT OF UTI AND ALTERED MENTAL STATUS. SHE WAS STARTED ON NORMAL SALINE AT 50ML/HR AND ROCEPHIN 1GM IV DAILY. OTHERWISE, WE PLAN TO FOLLOW UP WITH AM LABS AND CONTINUE TO MONITOR. - Past Medical History Past Medical History: Hypertension, Depression, Anxiety, GERD - Past Surgical History Surgical History: Cholecystectomy, Hysterectomy - Family History Family Medical History: Diabetes Mellitus, Hypertension - Social History Does patient currently use any type of tobacco product: No Have you used tobacco products in the last 12 months: No Type of Tobacco Use: None Does any household member use tobacco: No Alcohol Use: None Drug Use: Prescription Drugs - Medications Home Medications: No Known Drug Allergies Allergy (Verified 07/01/17 10:09) CONTINUE taking the following medications acetaminophen-codeine [Tylenol-Codeine #4] 1 tab PO PRN PRN 06/21/18 [History] alprazolam [Xanax] 0.5 - 1 tab PO BID PRN 06/21/18 [History] amlodipine 1 tab PO HS 06/21/18 [History] atorvastatin 1 tab PO HS 06/21/18 [History] gabapentin 1 tab PO BID 06/21/18 [History] hydrochlorothiazide 1 tab PO DAILY PRN 06/21/18 [History] risperidone [Risperdal] 1 tab PO HS 06/21/18 [History] tramadol 50 mg PO QID 06/21/18 [History] - Review of Systems Constitutional: Weakness Eyes: No Symptoms Reported ENT: No Symptoms Reported Respiratory: No Symptoms Reported Cardiovascular: Light [place]adedness Gastrointestinal: Abdominal Pain Genitourinary: No Symptoms Reported Musculoskeletal: No Symptoms Reported Skin: No Symptoms Reported Neurological: Weakness, Confusion - Physical Exam Vital Signs: Temperature 98.2 F Pulse Rate [Apical] 75 Pulse Rate 87 Respiratory Rate 20 Blood Pressure [Right Arm] 136/74 Blood Pressure 131/68 O2 Sat by Pulse Oximetry 97 Oriented: Person Eyes: Normal Ear: Normal Nose: Normal Throat: Normal Respiratory: Diminished Throughout Cardiovascular: Normal. negative: S3, S4, Murmur : Normal Auscultation: Bowel Sounds: Normal Palpation: Normal Tenderness: Suprapubic, Mild. negative: Rebound, Guarding, Rigidity Skin: Normal Musculoskeletal: Normal Psychiatric: Other (CONFUSION ) Mood Description: Calm Affect: Normal Speech Pattern: Delayed - Assessment/Plan (1) Urinary tract infection Qualifiers: Urinary tract infection type: acute cystitis Hematuria presence: without hematuria Qualified Code(s): N30.00 - Acute cystitis without hematuria Status: Acute Plan: ADMIT, NORMAL SALINE, ROCEPHIN 1GM IV DAILY, CONTINUE TO MONITOR (2) Altered mental status Qualifiers: Altered mental status type: transient alteration of awareness Qualified Code(s): R40.4 - Transient alteration of awareness Status: Acute - Allergies Allergies/Adverse Reactions: Allergies Allergy/AdvReac Type Severity Reaction Status Date / Time No Known Drug Allergies Allergy Verified 07/01/17 10:09
[2018-06-22] MEDS: ROCEPHIN VIAL 1 GRAM 1 G in NS 100 ML IV + SPIKE MINIBAG* 100 ML IV SCH (09:02)
[2018-06-22] MEDS: NS 1000 ML 1,000 ML IV SCH (10:11)
--- NOTE | 2018-06-22 10:49 | PCM.PROG ---
Progress Note - Progress Note for Day of Date of Exam: 06/22/18 - Subjective Subjective: WAS ADMITTED FOR TREATMENT OF A URINARY TRACT INFECTION AND ALTERED MENTAL STATUS. TODAY, SHE IS ALERT AND ORIENTED, LYING IN BED ON MORNING ROUNDS. SHE CONTINUES WITH COMPLAINTS OF MILD SUPRAPUBIC PAIN. FAMILY REPORTS THEY BELIEVE THAT PATIENT OVER MEDICATED ON HER MEDICATIONS YESTERDAY. ON EXAMINATION, HEART IS REGULAR IN RATE AND RHYTHM. BILATERAL LUNGS ARE NOTED WITH DIMINISHED LUNG SOUNDS THROUGHOUT. ABDOMEN IS ROUND, SOFT, AND NOTED WITH MILD, SUPRAPUBIC TENDERNESS. HER VITALS THIS MORNING ARE 98.41-82-18-92%-162/ 75. LABS WERE OBTAINED. ABNORMAL LAB VALUES INCLUDE THE FOLLOWING: POTASSIUM 3.4 , CARBON DIOXIDE 32.4, GLUCOSE 113, ALBUMIN 3.3. A URINE CULTURE IS PENDING. SHE IS CURRENTLY RECEIVING NORMAL SALINE AT 50ML/HR AND ROCEPHIN 1GM IV DAILY. WE WILL REPLACE HER POTASSIUM TODAY AND RESUME HER BLOOD PRESSURE MEDICATIONS. OTHERWISE, WE WILL FOLLOW UP WITH AM LABS AND CONTINUE TO MONITOR. - Past Medical Family Social History Past Med/Fam/Surg Hx: No changes since H&P Allergies: Allergies No Known Drug Allergies Allergy (Verified 07/01/17 10:09) - Review of Systems ROS: No change since H&P - Vital Signs and I&O's Vital Signs: Temperature 98.1 F Pulse Rate [Left Brachial] 82 Pulse Rate [Apical] 75 Pulse Rate 87 Respiratory Rate 18 Blood Pressure [Left Arm] 162/75 Blood Pressure [Right Arm] 136/74 Blood Pressure 131/68 O2 Sat by Pulse Oximetry 92 Intake and Output: Intake & Output 06/19/18 06/20/18 06/21/18 06/22/18 11:59 11:59 11:59 11:59 Intake Total 400 / 400 Output Total 1500 / 1500 Balance -1100 / -1100 - Physical Exam Oriented: Person Eyes: Normal Ear: Normal Nose: Normal Throat: Normal Cardiovascular: Normal. negative: S3, S4, Murmur : Normal Auscultation: Bowel Sounds: Normal Palpation: Normal Tenderness: Suprapubic, Mild. negative: Rebound, Guarding, Rigidity Skin: Normal Musculoskeletal: Normal Psychiatric: Other (CONFUSION ) Mood Description: Calm Affect: Normal Speech Pattern: Delayed - Laboratory and Diagnostics Result Diagrams: 06/22/18 05:10 06/22/18 05:10 Labs: 08/20/18 13:20 Urine,Catheterized Urine Culture - Preliminary Laboratory WBC 4.9 X10^3/uL (3.6-10.0) 06/22/18 05:10 RBC 3.54 X10^6/uL (3.5-5.4) 06/22/18 05:10 Hgb 11.6 g/dL (12.0-16.0) L 06/22/18 05:10 Hct 32.8 % (36.0-47.0) L 06/22/18 05:10 MCV 92.7 fL (80.0-100.0) 06/22/18 05:10 MCH 32.8 pg (27.0-34.0) 06/22/18 05:10 MCHC 35.3 g/dL (33.0-35.0) H 06/22/18 05:10 RDW 12.8 % (11.6-16.5) 06/22/18 05:10 Plt Count 205 X10^3/uL (150.0-450.0) 06/22/18 05:10 MPV 7.9 fL (7.4-11.0) 06/22/18 05:10 Neut % (Auto) 69.3 % (42.0-75.0) 06/22/18 05:10 Lymph % (Auto) 23.5 % (21.0-51.0) 06/22/18 05:10 [place] % (Auto) 5.3 % (0.0-13.0) 06/22/18 05:10 Eos % (Auto) 1.0 % (0.9-2.9) 06/22/18 05:10 Baso % (Auto) 0.9 % (0.2-1.0) 06/22/18 05:10 Neut # (Auto) 3.4 x10^3/uL (2.2-4.8) 06/22/18 05:10 Lymph # (Auto) 1.2 X10^3/uL (1.3-2.9) L 06/22/18 05:10 [place] # (Auto) 0.3 x10^3/uL (0.3-0.8) 06/22/18 05:10 Eos # (Auto) 0.0 x10^3/uL (0.0-0.2) 06/22/18 05:10 Baso # (Auto) 0.0 X10^3/uL (0.0-0.1) 06/22/18 05:10 Absolute Nucleated RBC 0.1 /100WBC 06/22/18 05:10 Sodium 143 mmol/L (136-145) 06/22/18 05:10 Corrected Sodium TNP 06/22/18 05:10 Potassium 2.9 mmol/L (3.5-5.1) L* 06/22/18 05:10 Chloride 105 mmol/L (98-107) 06/22/18 05:10 Carbon Dioxide 31.5 mmol/L (21-32) 06/22/18 05:10 BUN 5 mg/dL (7-18) L 06/22/18 05:10 Creatinine 0.75 mg/dL (0.55-1.02) 06/22/18 05:10 Est GFR (MDRD) Af Amer > 60 (>60) 06/22/18 05:10 Est GFR (MDRD) Non-Af > 60 (>60) 06/22/18 05:10 Glucose 109 mg/dL (65-99) H 06/22/18 05:10 Calcium 8.2 mg/dL (8.5-10.1) L 06/22/18 05:10 Corrected Calcium 9.1 mg/dL (8.5-10.1) 06/22/18 05:10 Magnesium 1.0 mg/dL (1.7-2.9) L 06/22/18 05:10 Total Bilirubin 0.60 mg/dL (0.2-1.0) 06/22/18 05:10 AST 29 Units/L (15-37) 06/22/18 05:10 ALT 25 Units/L (12-78) 06/22/18 05:10 Alkaline Phosphatase 57 Units/L (46-116) 06/22/18 05:10 Creatine Kinase 81 Units/L (26-192) 06/22/18 01:16 CK-MB (CK-2) 1.2 ng/mL (0-4.0) 06/22/18 01:16 CK/CKMB % Calc 1.5 % (<4) 06/22/18 01:16 Troponin I < 0.02 ng/mL (0-1.5) 06/22/18 01:16 Total Protein 6.3 g/dL (6.4-8.2) L 06/22/18 05:10 Albumin 2.9 g/dL (3.4-5.0) L 06/22/18 05:10 Globulin 3.4 g/dL (2.5-4.5) 06/22/18 05:10 Albumin/Globulin Ratio 0.9 Ratio (1.1-2.1) L 06/22/18 05:10 Triglycerides 105 mg/dL (0-150) 06/22/18 05:10 Cholesterol 85 mg/dL (0-200) 06/22/18 05:10 LDL Cholesterol, Calc 37 mg/dL (0-100) 06/22/18 05:10 HDL Cholesterol 27 mg/dL (40-60) L 06/22/18 05:10 Cholesterol/HDL Ratio 3.1 (0.0-5.0) 06/22/18 05:10 Specimen Type Catherized urine 06/21/18 13:32 Urine Color Yellow (YELLOW) 06/21/18 13:32 Urine Appearance Cloudy (CLEAR) 06/21/18 13:32 Urine pH 6.0 (5.0 - 8.0) 06/21/18 13:32 Ur Specific [place] 1.015 (1.000-1.030) 06/21/18 13:32 Urine Protein 2+ (NEGATIVE) 06/21/18 13:32 Urine Glucose (UA) Negative (NEGATIVE) 06/21/18 13:32 Urine Ketones Negative (NEGATIVE) 06/21/18 13:32 Urine Occult Blood 1+ (NEGATIVE) 06/21/18 13:32 Urine Nitrite Negative (NEGATIVE) 06/21/18 13:32 Urine Bilirubin Negative (NEGATIVE) 06/21/18 13:32 Urine Urobilinogen 3+ (NORMAL) 06/21/18 13:32 Ur Leukocyte Esterase 1+ (NEGATIVE) 06/21/18 13:32 Urine RBC 3-5 /HPF (NONE SEEN) 06/21/18 13:32 Urine WBC 10-20 /HPF (NONE SEEN) 06/21/18 13:32 Ur Squamous Epith Cells Rare /HPF (NEGATIVE) 06/21/18 13:32 Urine Bacteria 3+ /HPF (NEGATIVE) 06/21/18 13:32 Ur Culture Indicated? Yes/culture set up 06/21/18 13:32 Urine Opiates Screen Positive (NEG=<300) A 06/21/18 13:32 Urine Methadone Screen Negative (NEG=<300) 06/21/18 13:32 Ur Barbiturates Screen Negative (NEG=<200) 06/21/18 13:32 Ur Phencyclidine Scrn Negative (NEG=<25) 06/21/18 13:32 Ur Amphetamines Screen Negative (NEG=<1000) 06/21/18 13:32 U Benzodiazepines Scrn Positive (NEG=<200) A 06/21/18 13:32 Urine Cocaine Screen Negative (NEG=<300) 06/21/18 13:32 U Marijuana (THC) Screen Negative (NEG=<50) 06/21/18 13:32 - Plan (1) Urinary tract infection Status: Acute Qualifiers: Urinary tract infection type: acute cystitis Hematuria presence: without hematuria Qualified Code(s): N30.00 - Acute cystitis without hematuria Plan: ADMIT, NORMAL SALINE, ROCEPHIN 1GM IV DAILY, CONTINUE TO MONITOR (2) Altered mental status Status: Acute Qualifiers: Altered mental status type: transient alteration of awareness Qualified Code(s): R40.4 - Transient alteration of awareness (3) Hypertension Status: Acute Qualifiers: Hypertension type: essential hypertension Qualified Code(s): I10 - Essential (primary) hypertension Plan: RESUME HOME MEDICATION, CONTINUE TO MONITOR
[2018-06-22] MEDS: ASPIRIN 81 MG CHEWTAB PO SCH (11:33)
[2018-06-22] MEDS: PLAVIX PO SCH (11:34)
[2018-06-22] MEDS: LOPRESSOR TAB 25 MG PO SCH (11:34)
[2018-06-22] MEDS: SINGULAIR TAB 10 MG PO SCH (11:35)
[2018-06-22 14:35] VITALS: BMI 23.3
[2018-06-22] MEDS ORDERED: BUTT CREAM (COMPOUND) TOP PRN (16:43)
[2018-06-22] MEDS ORDERED: NORVASC TAB 5 MG PO SCH (21:00)
[2018-06-22] MEDS ORDERED: LIPITOR TAB 10 MG PO SCH (21:00)
[2018-06-22] MEDS: MAGNESIUM SULFATE 1 GRAM/100 mL PREMIX 1 GM/100 ML BAG IV PRN ×3 (21:17→23:35)
[2018-06-22] MEDS ORDERED: MAALOX or MYLANTA PO PRN (23:28)
[2018-06-23] MEDS: MAGNESIUM SULFATE 1 GRAM/100 mL PREMIX 1 GM/100 ML BAG IV PRN ×3 (00:53→03:11)
[2018-06-23 06:27] LABS: BASOPHILS % (AUTO) 0.5 % (0.2-1.0); EOSINOPHILS % (AUTO) 0.1 % (0.9-2.9); HEMATOCRIT 38.6 % (36.0-47.0); HEMOGLOBIN 13.6 g/dL (12.0-16.0); LYMPHOCYTES # (AUTO) 1.1 X10^3/uL (1.3-2.9); LYMPHOCYTES % (AUTO) 15.6 % (21.0-51.0); MEAN CORPUSCULAR HGB CONC 35.4 g/dL (33.0-35.0); MEAN CORPUSCULAR VOLUME 93.2 fL (80.0-100.0); MEAN PLATELET VOLUME 7.7 fL (7.4-11.0); MONOCYTES # (AUTO) 0.5 x10^3/uL (0.3-0.8); MONOCYTES % (AUTO) 6.6 % (0.0-13.0); NEUTROPHILS # (AUTO) 5.3 x10^3/uL (2.2-4.8); NEUTROPHILS % (AUTO) 77.2 % (42.0-75.0); PLATELET COUNT 286 X10^3/uL (150.0-450.0); RED BLOOD COUNT 4.14 X10^6/uL (3.5-5.4); RED CELL DISTRIBUTION WIDTH 13.1 % (11.6-16.5); WHITE BLOOD COUNT 6.9 X10^3/uL (3.6-10.0)
[2018-06-23 06:47] LABS: ALANINE AMINOTRANSFERASE 25 Units/L (12-78); ALBUMIN 3.4 g/dL (3.4-5.0); ALKALINE PHOSPHATASE 67 Units/L (46-116); ASPARTATE AMINO TRANSFERASE 27 Units/L (15-37); BLOOD UREA NITROGEN 4 mg/dL (7-18); CALCIUM 8.2 mg/dL (8.5-10.1); CARBON DIOXIDE 29.4 mmol/L (21-32); CHLORIDE 103 mmol/L (98-107); COR NA(FOR HYPERGLY) 141 mmol/L (136-145); CREATININE 0.81 mg/dL (0.55-1.02); MAGNESIUM 3.8 mg/dL (1.7-2.9); SODIUM 139 mmol/L (136-145); TOTAL PROTEIN 7.4 g/dL (6.4-8.2); eGFR NON BLACK RACES > 60 (>60)
[2018-06-23] MEDS ORDERED: TYLENOL 325 MG TAB PO PRN (07:29)
[2018-06-23] MEDS: LOPRESSOR TAB 25 MG PO SCH (08:25)
[2018-06-23] MEDS: ROCEPHIN VIAL 1 GRAM 1 G in NS 100 ML IV + SPIKE MINIBAG* 100 ML IV SCH (08:25)
[2018-06-23] MEDS: ASPIRIN 81 MG CHEWTAB PO SCH (08:25)
[2018-06-23] MEDS: SINGULAIR TAB 10 MG PO SCH (08:26)
[2018-06-23] MEDS: PLAVIX PO SCH (08:28)
[2018-06-23 13:38] VITALS: BP 134/63
--- NOTE | 2018-08-20 23:19 | DR.CARTERD ---
- Discharge Summary for: Discharge Summary for Date of:: 06/23/18 - Admission Date Date of Admission: 06/21/18 - Admission Diagnoses Admission Diagnosis: (1) Altered mental status (2) Urinary tract infection - Discharge Date Discharge Date: 06/23/18 - Discharge Diagnoses Discharge Diagnosis: (1) Altered mental status (2) E. Coli UTI (3) Hypertension - Hospital Course Hospital Course: DAY ONE, IS A 73 YEAR OLD PATIENT OF OURS WHO PRESENTED TO THE EMERGENCY ROOM VIA WITH COMPLAINTS OF FALLING AT HOME. ON EMS ARRIVAL TO SCENE, PATIENT WAS SITTING IN THE RECLINER. SHE WAS NOTED WITH ALTERED MENTAL STATUS AND CONFUSION. FAMILY REPORTED THAT SHE HAD FALLEN OFTEN OVER THE PAST SEVERAL WEEKS. ON ARRIVAL TO THE ER, SHE WAS SLOW TO ANSWER QUESTIONS AND WAS CONFUSED. SHE WAS NOTED WITH GENERALIZED WEAKNESS. ON ARRIVAL, VITALS WERE 97.1-87-20-93%NC-131/68. LABS WERE OBTAINED. ABNORMAL LAB VALUES INCLUDED THE FOLLOWING: POTASSIUM 3.4, CARBON DIOXIDE 32.4, GLUCOSE 113, ALBUMIN 3.3. CARDIAC ENZYMES WITHIN NORMAL LIMITS. TOXICOLOGY WAS POSITIVE FOR OPIATES AND BENZODIAZEPINES. URINALYSIS REVEALS: WBC 10-20, RBC 3-5, BACTERIA 3+, LEUKOCYTES 1+, OCCULT BLOOD 1+, PROTEIN 2+. BRAIN CT OBTAINED AND REVEALED: No definite evidence of an acute intracranial process. If clinical concern persists for acute stroke and it would alter patient management, consider MRI/MRA brain. Moderate microvascular white matter ischemic changes, with associated volume loss. CHEST XRAY REVEALED: NO ACUTE CARDIOPULMONARY DISEASE. PATIENT WAS ADMITTED TO THE HOSPITAL FOR FURTHER EVALUATION AND TREATMENT OF UTI AND ALTERED MENTAL STATUS. SHE WAS STARTED ON NORMAL SALINE AT 50ML/HR AND ROCEPHIN 1GM IV DAILY. DAY TWO, WAS ADMITTED FOR TREATMENT OF A URINARY TRACT INFECTION AND ALTERED MENTAL STATUS. SHE WAS ALERT AND ORIENTED, LYING IN BED ON MORNING ROUNDS. SHE CONTINUED WITH COMPLAINTS OF MILD SUPRAPUBIC PAIN. FAMILY REPORTED THEY BELIEVED THAT PATIENT OVER MEDICATED ON HER MEDICATIONS THE DAY BEFORE. ON EXAMINATION, HEART WAS REGULAR IN RATE AND RHYTHM. BILATERAL LUNGS WERE NOTED WITH DIMINISHED LUNG SOUNDS THROUGHOUT. ABDOMEN WAS ROUND, SOFT, AND NOTED WITH MILD, SUPRAPUBIC TENDERNESS. HER VITALS WERE 98.41-82-18-92%-162/75. LABS WERE OBTAINED. ABNORMAL LAB VALUES INCLUDED THE FOLLOWING: POTASSIUM 3.4, CARBON DIOXIDE 32.4, GLUCOSE 113, ALBUMIN 3.3. SHE CONTINUED TO RECEIVE NORMAL SALINE AT 50ML/HR AND ROCEPHIN 1GM IV DAILY. WE REPLACED HER POTASSIUM AND RESUMED HER BLOOD PRESSURE MEDICATIONS. DAY THREE, REPORTED SHE WAS FEELING BETTER. FINAL URINE CULTURE REPORTED E. COLI, WHICH WAS SENSITIVE TO ROCEPHIN. PATIENT DENIED ABDOMINAL PAIN. PATIENT WAS ALERT AND ORIENTED. VITAL SIGNS STABLE. LABS WNL. WE PLANNED FOR DISCHARGE. INSTRUCTIONS FOR MEDICATIONS AND FOLLOW UP WERE DISCUSSED WITH PATIENT AND FAMILY. PATIENT DISCHARGED HOME IN STABLE CONDITION WITH FAMILY. Labs: Microbiology 06/21/18 13:20 Urine,Catheterized Urine Culture - Final Escherichia Coli - Discharge Medications Discharge Medications: Home Medication List acetaminophen-codeine [Tylenol-Codeine #4] 1 tab PO PRN PRN 06/21/18 [History] alprazolam [Xanax] 0.5 - 1 tab PO BID PRN 06/21/18 [History] amlodipine 1 tab PO HS 06/21/18 [History] atorvastatin 1 tab PO HS 06/21/18 [History] hydrochlorothiazide 1 tab PO DAILY PRN 06/21/18 [History] risperidone [Risperdal] 1 tab PO HS 06/21/18 [History] cefdinir 300 mg PO BID #14 cap 06/23/18 [Rx] tramadol 50 mg PO QID PRN #0 tab 06/23/18 [Rx] Prescriptions: cefdinir Otilio Colon Ambulatory Orders aspirin [[facility] Aspirin] 1 tab PO DAILY 07/01/17 clopidogrel [Plavix] 1 tab PO DAILY 07/01/17 metoprolol tartrate 2 tab PO DAILY 07/01/17 montelukast [Singulair] 1 tab PO DAILY 07/01/17 niacin 1 tab PO HS 07/01/17 omeprazole 1 tab PO BID 07/01/17 potassium chloride 1 tab PO DAILY 07/01/17 ropinirole 1 tabs PO HS 07/01/17 bupropion HCl (smoking deter) [Zyban] 75 mg PO HS 11/05/17 escitalopram oxalate 10 mg PO HS 11/05/17 trazodone 150 mg PO HS 11/05/17 - Discharge Disposition Discharge Disposition: PATIENT IS TO FOLLOW UP IN OUR OFFICE IN ONE WEEK.
== END 2018-06-23 13:35 | disposition home or self-care (01) ==
LOC: ER 12:03 → MED/SURG 12:03
PROVIDERS: ADMIT Internal Medicine; ATTEND Internal Medicine
DX: R94.31 Abnormal electrocardiogram [ECG] [EKG]; F32.89 Other specified depressive episodes; F41.8 Other specified anxiety disorders; R40.4 Transient alteration of awareness; Z79.899 Other long term (current) drug therapy; E87.6 Hypokalemia; W18.39XA Other fall on same level, initial encounter; R48.8 Other symbolic dysfunctions; R44.2 Other hallucinations; R29.6 Repeated falls; I10 Essential (primary) hypertension; M62.81 Muscle weakness (generalized); R26.89 Other abnormalities of gait and mobility; K21.9 Gastro-esophageal reflux disease without esophagitis; B96.29 Other Escherichia coli [E. coli] as the cause of diseases classified elsewhere; N30.00 Acute cystitis without hematuria
CPT/HCPCS: 36415; 51702; 70450; 71010; 71045; 80053; 80061; 80307; 81001; 82550; 82553; 83735; 84484; 85025; 87086; 87088; 87186; 92523; 93005; 93010; 94760; 96365; 96374; 97162; 97166; 99284; A4216; A4222; G0378; G0434; J0696; J3475; J3480; J3490; J7030; J7050